=== PATIENT | male | born 1995 | race Caucasian/White ===

== ENCOUNTER 2016-04-02 10:46 | Emergency (ER) | payer OTHER ==
[2016-04-02 10:51] VITALS: BP 140/98; RESP 18; O2SAT 96
[2016-04-02] MEDS ORDERED: DEXAMETHASONE 4 MG TAB PO ONE (11:14)
[2016-04-02] MEDS ORDERED: IBUPROFEN 200 MG TAB PO ONE (11:14)
--- NOTE | 2016-04-02 11:29 | EDPHY ---
H & P Stated Complaint: sore throat since yest HPI/ROS: Chief complaint: Sore throat History of present illness: This is a 21-year-old male who presents to the emergency department for evaluation of a sore throat. Patient reports he has had symptoms for the last 2 days. He denies precipitating factors. He denies alleviating factors. He denies other associated signs or symptoms including no fevers, no runny nose or nasal congestion, no cough, no chest congestion, no body aches, no rash. - Personal History Current Tetanus/Diphtheria Vaccine: Unsure Current Tetanus Diphtheria and Acellular Pertussis (TDAP): Unsure - Medical/Surgical History Hx Asthma: No Hx Chronic Respiratory Disease: No Hx Diabetes: No Hx Cardiac Disease: No Hx Renal Disease: No Hx Cirrhosis: No Hx Alcoholism: No Hx HIV/AIDS: No Hx Splenectomy or Spleen Trauma: No Other PMH: pmh: pneumo after bear attack. - Social History Smoking Status: Light smoker - Physical Exam Exam: General Appearance: Alert, nontoxic. Eyes: Pupils equal and round no injection. ENT: Tympanic membranes, external auditory canals, external ears and surrounding soft tissue including over the mastoids are unremarkable. Nasopharynx is not injected. There is no rhinorrhea. Oropharynx is mildly injected. There is no edema. There is no exudate. There is no asymmetry. The uvula is midline. No elevation of the tongue. There is no hoarseness, no drooling, no trismus, no stridor. Respiratory: Chest is non tender, lungs are clear to auscultation. Cardiac: regular rate and rhythm Musculoskeletal: Neck is supple and non tender. Extremities have full range of motion and are non tender. Skin: No rashes or lesions. Neurological: Alert and oriented. No meningismus. Constitutional: Initial Vital Signs Temperature (C) 36.8 C 04/02/16 10:48 Heart Rate 99 04/02/16 10:48 Respiratory Rate 18 04/02/16 10:48 Blood Pressure 140/98 H 04/02/16 10:48 O2 Sat (%) 96 04/02/16 10:48 O2 Delivery Mode Room Air Allergies/Adverse Reactions: Penicillins Allergy (Verified 06/10/14 02:29) Home Medications: Medication Instructions Recorded Amphet Asp and D/Amphet [Adderall] 10 mg PO 06/10/14 Hydrocodone/APAP 5/325 [[place] 1 tab PO Q6H #6 tab 04/02/16 5/325 (*)] Medical Decision Making ED Course/Re-evaluation: Patient seen under the supervision of my secondary supervising physician Dr. Jordan Rogers. Patient presents to the emergency department for a sore throat. On presentation he is nontoxic. Vital signs are stable. Physical exam is consistent with pharyngitis. No evidence of complications such as abscess formation. Strep swab is negative. I do not believe antibiotics are warranted at this time. Symptomatic care is discussed with patient. He is asked to follow up with the primary care doctor for recheck. Strict return precautions are given. Patient voiced understanding and agreement with plan. Differential Diagnosis: Included but not limited to pharyngitis, strep pharyngitis, tonsillitis, unlikely complications such as abscess formation or meningitis - Data Points Laboratory Results: 04/02/16 04/02/16 Unknown 10:58 Group A Strep Screen NEGATIVE (NEGATIVE) Group A Strep DNA Pending Medications Given: Discontinued Medications Dexamethasone (Decadron) 10 mg PO EDNOW ONE Stop: 04/02/16 11:15 Last Admin: 04/02/16 11:24 Dose: 10 mg Ibuprofen (Motrin) 800 mg PO EDNOW ONE Stop: 04/02/16 11:15 Last Admin: 04/02/16 11:24 Dose: 800 mg Departure - Departure Disposition: Home, Routine, Self-Care Clinical Impression: Acute pharyngitis Qualifiers: Pharyngitis/tonsillitis etiology: unspecified etiology Qualifier Code: (J02.9) Acute pharyngitis, unspecified Condition: Good Instructions: Pharyngitis (ED) Additional Instructions: Follow-up with the primary care doctor for recheck In regards to pain control see the following: Use ibuprofen 600 mg 3 times a day for the next 2-3 days for pain In addition You have been prescribed [place] for pain. [place] contains Tylenol, do not take extra Tylenol/acetaminophen/Apap with it. It is sedating. If symptoms worsen or new symptoms develop return to the emergency department for recheck Referrals: NONE *PRIMARY CARE P,. [Primary Care Provider] - As per Instructions Leydi Seth MD [Medical Doctor] - As per Instructions [facility] [Outside] - As per Instructions Prescriptions: Hydrocodone/APAP 5/325 [[place] 5/325 (*)] 1 tab PO Q6H #6 tab
[2016-04-02 11:37] VITALS: PULSE 89; TEMP 98.4
== END 2016-04-02 11:36 | disposition home or self-care (01) ==
DX: J02.9 Acute pharyngitis, unspecified (principal); F17.200 Nicotine dependence, unspecified, uncomplicated

== ENCOUNTER 2016-04-04 12:52 | Emergency (ER) | payer OTHER ==
[2016-04-04 12:57] VITALS: TEMP 97.3
--- NOTE | 2016-04-04 13:03 | EDPHY ---
H & P Stated Complaint: SEEN MONDAY, RETURNS FOR INCREASING SORE THROAT SWOLLEN R GLAND HPI/ROS: HPI CHIEF COMPLAINT: Sore throat, worsening right lateral neck pain and swelling HISTORY OF PRESENT ILLNESS: This patient very pleasant 21-year-old male, denies any significant medical history denies any significant surgical history presents emergency room with worsening ongoing right sided neck swelling and pain. He was recently seen here in the emergency room 2 days ago for sore throat he had a negative rapid strep at that time and culture that follow-up was negative. Is placed on [place]. He presents back to the emergency room with worsening right lateral neck pain and swelling. Trouble swallowing. He denies drooling. Denies fever. Denies change in Phonation. Denies high fever, nausea vomiting chest pain shortness of breath or productive cough. Past Medical History:Denies significant medical history Past Surgical History: Denies significant surgical history Social History: Occasional tobacco use, denies drugs, alcohol, employed Family History: noncontributory ROS REVIEW OF SYSTEMS: A comprehensive 10 point review of systems is otherwise negative aside from elements mentioned in the history of present illness. Exam Constitutional triage nursing summary reviewed, vital signs reviewed, awake/ alert. Eyes normal conjunctivae and sclera, EOMI, PERRLA. HENT neck: Tender palpation over the right submandibular region, tender palpation over the right parotid, tender to palpation right lateral neck. There is swelling present. There is obvious lymphadenopathy. Posterior pharynx is normal, no significant redness, uvula midline, no significant swelling, no signs of Bassam's, no swelling underneath the tongue, no stridor, no drooling, no trismus, moist mucus membranes, no epistaxis, neck supple/ no meningismus, no raccoon eyes. Respiratory clear to auscultation bilaterally, normal breath sounds, no respiratory distress, no wheezing. Cardiovascular rate normal, regular rhythm, no murmur, no edema, distal pulses normal. Gastrointestinal soft, non-tender, no rebound, no guarding, normal bowel sounds, no distension, no pulsatile mass. Genitourinary no CVA tenderness. Musculoskeletal no midline vertebral tenderness, full range of motion, no calf swelling, no tenderness of extremities, no meningismus, good pulses, neurovascularly intact. Skin pink, warm, & dry, no rash, skin atraumatic. Neurologic awake, alert and oriented x 3, AAOx3, moves all 4 extremities equally, motor intact, sensory intact, CN II-XII intact, normal cerebellar, normal vision, normal speech. Psychiatric normal mood/affect. Heme/Lymph/Immune no lymphadenopathy. Differential Diagnosis: includes but is not limited to in a particular order, submandibular lymphadenopathy, parotid gland infection, parotid gland obstruction, infected lymph node, neck abscess Medical Decision Making:This patient had an IV established will obtain blood work, patient had a CT scan of the neck with IV contrast to rule out significant neck abscess, patient be given 10 mg IV Decadron for inflammation, IV morphine for pain control, IV fluid 1 L normal saline for IV hydration. Re-evaluation: CT scan of the Soft tissue neck with IV contrast The results of the study are this shows a right-sided peritonsillar abscess 2.3 cm is reactive lymphadenopathy extending down into his submandibular region no airway compromise. The study was read by Dr. Carson I viewed the images myself on the PACS system. 1454: Spoke with Dr. Levi ENT on-call consult. Does recommend IV clindamycin clindamycin for home. She did review the CT scan. She said she be glad to see him today in office or tomorrow with follow-up. Recommend trauma antibiotics before possible surgical drainage. 1501: After further discussion with the patient he is agreeable for IV antibiotics he is also agreeable for going home. His airway is patent he has no trouble swallowing drinking or eating foods. He does have pain when he swallows. Patient is comfortable going home with pain medicine, antibiotics and steroids. He does understand he needs to follow up with Dr. Hooker office. He does wish to see her today. Patient received 900 mg IV clindamycin in the emergency room 10 mg IV Decadron. I will prescribe clindamycin for home, Decadron for home, ibuprofen for home, [place] for home. He does understand he has trouble swallowing, trouble breathing, high fever, vomiting or feels symptoms are getting worse to return immediately to the emergency room. Does want to go to Dr. Hooker office today. 1504: Of note this patient appears well nontoxic not drooling able to handle secretions appropriately, no airway compromise. Agreeable for discharge understands return if any worsening symptoms questions or concerns. Source: Patient - Personal History Current Tetanus Diphtheria and Acellular Pertussis (TDAP): Unsure - Medical/Surgical History Hx Asthma: No Hx Chronic Respiratory Disease: No Hx Diabetes: No Hx Cardiac Disease: No Hx Renal Disease: No Hx Cirrhosis: No Hx Alcoholism: No Hx HIV/AIDS: No Hx Splenectomy or Spleen Trauma: No Other PMH: pmh: pneumo after bear attack. - Social History Smoking Status: Light smoker Constitutional: Initial Vital Signs Temperature (C) 36.3 C 04/04/16 12:55 Heart Rate 105 H 04/04/16 12:55 Respiratory Rate 16 04/04/16 12:55 Blood Pressure 153/105 H 04/04/16 12:55 O2 Sat (%) 99 04/04/16 12:55 O2 Delivery Mode Room Air Allergies/Adverse Reactions: Penicillins Allergy (Verified 04/04/16 12:58) Home Medications: Medication Instructions Recorded Amphet Asp and D/Amphet [Adderall] 10 mg PO 06/10/14 Hydrocodone/APAP 5/325 [[place] 1 tab PO Q6H #6 tab 04/02/16 5/325 (*)] Clindamycin HCl [Clindamycin] 300 mg PO TID #30 cap 04/04/16 Dexamethasone [Decadron 4 MG (*)] 6 mg PO DAILY #7 tab 04/04/16 Hydrocodone/APAP 5/325 [[place] 1 - 2 tab PO Q4H PRN #10 tab 04/04/16 5/325] Ibuprofen [Motrin (*)] 800 mg PO Q6-8PRN #7 tab 04/04/16 Ondansetron HCl [Zofran] 4 mg PO Q4-6PRN PRN #10 tablet 04/04/16 Medical Decision Making - Data Points Laboratory Results: Laboratory Results 04/04/16 13:25 04/04/16 13:25 04/04/16 13:25 WBC 13.89 H 10^3/uL (3.80-9.50) RBC 5.24 10^6/uL (4.40-6.38) Hgb 16.5 g/dL (13.7-17.5) Hct 47.1 % (40.0-51.0) MCV 89.9 fL (81.5-99.8) MCH 31.5 pg (27.9-34.1) MCHC 35.0 g/dL (32.4-36.7) RDW 12.0 % (11.5-15.2) Plt Count 221 10^3/uL (150-400) MPV 10.5 fL (8.7-11.7) Neut % (Auto) 73.7 % (39.3-74.2) Lymph % (Auto) 13.6 L % (15.0-45.0) [place] % (Auto) 10.0 % (4.5-13.0) Eos % (Auto) 1.8 % (0.6-7.6) Baso % (Auto) 0.3 % (0.3-1.7) Nucleat RBC Rel Count 0.0 % (0.0-0.2) Absolute Neuts (auto) 10.24 H 10^3/uL (1.70-6.50) Absolute Lymphs (auto) 1.89 10^3/uL (1.00-3.00) Absolute Monos (auto) 1.39 H 10^3/uL (0.30-0.80) Absolute Eos (auto) 0.25 10^3/uL (0.03-0.40) Absolute Basos (auto) 0.04 10^3/uL (0.02-0.10) Absolute Nucleated RBC 0.00 10^3/uL (0-0.01) Immature Gran % 0.6 % (0.0-1.1) Immature Gran # 0.08 10^3/uL (0.00-0.10) Sodium 142 mEq/L (134-144) Potassium 4.0 mEq/L (3.5-5.2) Chloride 104 mEq/L (97-110) Carbon Dioxide 28 mEq/l (22-31) Anion Gap 10 mEq/L (8-16) BUN 11 mg/dL (7-23) Creatinine 0.7 mg/dL (0.7-1.3) Estimated GFR > 60 Glucose 88 mg/dL (70-100) Calcium 9.1 mg/dL (8.5-10.4) Medications Given: Discontinued Medications Dexamethasone Sodium Phosphate (Decadron) 10 mg IVP/PO EVERY OTHER DAY ONE Stop: 04/04/16 13:13 Last Admin: 04/04/16 13:30 Dose: 10 mg Sodium Chloride (Ns) 1,000 mls @ 0 mls/hr IV ONCE ONE PRN Reason: Wide Open Stop: 04/04/16 13:13 Last Admin: 04/04/16 13:30 Dose: 1,000 mls Morphine Sulfate (Morphine) 4 mg IVP EDNOW ONE Stop: 04/04/16 13:14 Last Admin: 04/04/16 13:30 Dose: 4 mg Ondansetron HCl (Zofran) 4 mg IVP EDNOW ONE Stop: 04/04/16 13:14 Last Admin: 04/04/16 13:30 Dose: 4 mg Departure - Departure Disposition: Home, Routine, Self-Care Clinical Impression: Submandibular lymphadenopathy, Peritonsillar abscess Condition: Good Instructions: Lymphadenopathy (ED), Peritonsillar Abscess (ED) Additional Instructions: 1. Drink lots of fluids stay well-hydrated 2. Take steroids as prescribed 3. Follow up with ENT. 4. Return to the emergency room if develops any worsening symptoms questions or concerns includes worsening swelling, high fever, vomiting. 5. Go to Dr. Hooker office today. Her address and phone number been on your paperwork. 6.Take antibiotics as prescribed. Referrals: NONE *PRIMARY CARE P,. [Primary Care Provider] - As per Instructions Digna Levi MD [Medical Doctor] - As per Instructions Prescriptions: Clindamycin HCl [Clindamycin] 300 mg PO TID #30 cap Dexamethasone [Decadron 4 MG (*)] 6 mg PO DAILY #7 tab Ibuprofen [Motrin (*)] 800 mg PO Q6-8PRN #7 tab Hydrocodone/APAP 5/325 [[place] 5/325] 1 - 2 tab PO Q4H PRN #10 tab PRN Reason: Pain, Moderate Ondansetron HCl [Zofran] 4 mg PO Q4-6PRN PRN #10 tablet PRN Reason: Nausea/Vomiting, Use 1st
[2016-04-04] MEDS ORDERED: NS 1,000 ML IV ONE (13:12)
[2016-04-04] MEDS ORDERED: DEXAMETHASONE VARIABLE DOSE IVP/PO ONE (13:12)
[2016-04-04] MEDS ORDERED: ONDANSETRON 4 MG/2 ML VIAL IVP ONE (13:13)
[2016-04-04 13:31] LABS: % IMMATURE GRANULYOCYTES 0.6 % (0.0-1.1); ABSOLUTE IMMATURE GRANULOCYTES 0.08 10^3/uL (0.00-0.10); ADD DIFF? NO; ADD MORPH? NO; ADD SCAN? NO; ATYPICAL LYMPHOCYTE FLAG 0 (0-99); FRAGMENT RBC FLAG 0 (0-99); HEMATOCRIT 47.1 % (40.0-51.0); HEMOGLOBIN 16.5 g/dL (13.7-17.5); LEFT SHIFT FLG 10 (0-99); LIPEMIA HEMOLYSIS FLAG 90 (0-99); MEAN CELL HEMOGLOBIN 31.5 pg (27.9-34.1); MEAN CELL VOLUME 89.9 fL (81.5-99.8); MEAN PLATELET VOLUME 10.5 fL (8.7-11.7); PLATELET CLUMPS FLAG 0 (0-99); PLATELET COUNT 221 10^3/uL (150-400); RED BLOOD CELL COUNT 5.24 10^6/uL (4.40-6.38)
[2016-04-04] MEDS ORDERED: DEXAMETHASONE 10 MG/ML VIAL ONE (13:32)
[2016-04-04 13:48] LABS: CALCIUM 9.1 mg/dL (8.5-10.4); CARBON DIOXIDE 28 mEq/l (22-31); CHLORIDE 104 mEq/L (97-110); CREATININE 0.7 mg/dL (0.7-1.3); GLOMERULAR FILTRATION RATE > 60; GLUCOSE 88 mg/dL (70-100)
[2016-04-04 14:02] LABS: ANION GAP 10 mEq/L (8-16); SODIUM 142 mEq/L (134-144)
[2016-04-04] MEDS ORDERED: IOPAMIDOL (ISOVUE-300) 100 ML BTL IV ONE (14:12)
[2016-04-04] MEDS ORDERED: CLINDAMYCIN 900 MG/DEXTROSE 50 ML IV ONE (14:48)
--- NOTE | 2016-04-04 15:00 | CT ---
CT Soft Tissue Neck With Contrast Enhancement History: Swelling, right-sided neck pain, difficulty swallowing Comparison: None available. Technique: Axial computed tomographic images of the neck soft tissues obtained from the skull base to the thoracic inlet during the uneventful intravenous administration of 90 mL Isovue-300 contrast. Do se reduction techniques were utilized. Findings: There is a 2.3 x 1.3 x 1.9 cm (transverse x craniocaudal) peritonsillar fluid collection wi th peripheral enhancement, consistent with a peritonsillar abscess (series 3 image 83). There is exte nsive associated inflammatory change superior and inferior to the abscess, including edema and strand ing associated with the right submandibular gland. The airway appears widely patent, with mild leftwa rd displacement. Numerous mildly prominent cervical lymph nodes are present, right greater than left. The visible brain and orbits are normal. The parotid and thyroid glands are normal. There is reversa l of the normal cervical lordosis with trace anterolisthesis of C2 on C3 and C3 on C4. The lung apice s are clear. Impression: 1. 2.3-cm right peritonsillar abscess with extensive associated inflammation. 2. Sialadenitis of the right submandibular gland secondary to reactive inflammation from the peritons illar abscess. 3. Reactive cervical adenopathy. 4. Additional findings as above. Findings discussed with Dr. Saeed Chapa, on April 04, 2016 at 1447 hours.
[2016-04-04 15:40] VITALS: BP 150/91; PULSE 98; RESP 16; O2SAT 95
== END 2016-04-04 15:39 | disposition home or self-care (01) ==
DX: J36 Peritonsillar abscess (principal); R59.0 Localized enlarged lymph nodes; F17.200 Nicotine dependence, unspecified, uncomplicated
CPT/HCPCS: 96374; J2405; Q9967